=== PATIENT | female | born 1965 | race Caucasian/White ===

== ENCOUNTER 2016-10-31 18:59 | Emergency (ER) | payer OTHER ==
[~2016-10-31] VITALS: Ht 167.6 cm; Wt 108.9 kg
[~2016-10-31 18:59] MED LIST: ALPRAZOLAM0.5 M4 PO; AYGESTIN5 MG PO; EFFEXOR XR75 M1 PO; MOBIC7.5 M1 PO; SYNTHROID100 MCG PO
[2016-10-31 20:13] LABS: ABSOLUTE BASOPHIL COUNT 0 /CUMM (0.0-0.2); ABSOLUTE EOSINOPHIL COUNT 0 /CUMM (0.0-0.7); ABSOLUTE GRANULOCYTE CT 8.3 /CUMM (1.4-6.5); ABSOLUTE LYMPH COUNT 2.6 /CUMM (1.2-3.4); ABSOLUTE MONOCYTE COUNT 0.8 /CUMM (0.10-0.60); BASOPHIL % 0.4 % (0.0-2.0); EOSINOPHIL % 0 % (0-5); GRANULOCYTE % 70.5 % (42.2-75.2); HEMATOCRIT 45.3 % (37-47); MEAN CORPUSCULAR HGB 27.5 PG (27.0-31.0); MEAN CORPUSCULAR HGB CONC 33.2 G/DL (33.0-37.0); MEAN CORPUSCULAR VOLUME 82.8 FL (81.0-99.0); MEAN PLATELET VOLUME 7.2 FL (7.4-10.4); PLATELET COUNT 279 /CUMM (130-400); RBC DISTRIBUTION WIDTH 13.3 % (11.5-14.5); RED BLOOD CELL CT 5.48 /CUMM (4.20-5.40); WHITE BLOOD CELL COUNT 11.7 /CUMM (4.8-10.8)
--- NOTE | 2016-10-31 20:36 | ED CARDIAC/CP/PALPITATIONS ---
History of Present Illness General Chief Complaint: Chest Pain Stated Complaint: CP Source: patient, family Exam Limitations: no limitations Vital Signs & Intake/Output Vital Signs & Intake/Output Vital Signs Date Time Temp Pulse Resp B/P Pulse O2 O2 Flow FiO2 Ox Delivery Rate 11/01 0110 98.4 73 18 168/87 98 Room Air 10/31 2208 98.2 80 18 187/89 99 Room Air 10/318 98 Room Air 10/31 1937 97.9 88 18 161/93 99 Room Air ED Intake and Output 11/01 0000 10/31 1200 Intake Total Output Total Balance Patient 240 lb Weight Allergies Coded Allergies: NO KNOWN ALLERGIES (08/02/16) Reconcile Medications Alprazolam 0.5 MG TABLET 1 TAB PO PRN ANXIETY (Reported) Levothyroxine Sodium (Synthroid) 100 MCG TABLET 1 TAB PO DAILY THYROID ( Reported) Norethindrone (Aygestin) 5 MG TABLET 1 TAB PO AD MENSTRUAL CYCLE (Reported) Venlafaxine HCl (Effexor XR) (Unknown Strength) CAP.ER.24H 75 MG PO DAILY DEPRESSION/ANXIETY (Reported) Triage Note: RECEIVED 51 YO FEMALE C/O MID STERNAL CHEST PAIN, INTERMITTENTLY, STARTED THIS AM, GETTING WORSE. PAIN FEELS LIKE SQUEEZING TIGHTNESS, GETTING WORSE THROUGHOUT THE DAY. SOME LIGHTHEADEDNESS. Triage Nurses Notes Reviewed? yes HPI: Patient states that since this morning she has been getting intermittent substernal chest tightness. There is no radiation. The symptoms last anywhere from a few minutes to a few hours before going when their own. Patient states that she feels better when she gets up and paces and feels little bit worse when she sits down. Patient denies any difficulty breathing. There is no nausea or vomiting. There is no diaphoresis. At its worst the tightness is 7 out of 10. Currently the tightness is 0 out of 10. Past History Travel History Traveled to [place] past 21 day No Medical History Any Pertinent Medical History? see below for history Neurological: NONE EENT: NONE Cardiovascular: NONE Respiratory: NONE Gastrointestinal: NONE Hepatic: NONE Renal: NONE Musculoskeletal: NONE Psychiatric: anxiety Endocrine: hypothyroidism Blood Disorders: NONE Cancer(s): NONE Surgical History Surgical History: non-contributory Psychosocial History What is your primary language Arabic Tobacco Use: Never used ETOH Use: occasional use Illicit Drug Use: denies illicit drug use Family History Hx Contributory? No Review of Systems Review of Systems Constitutional: Reports: no symptoms. EENTM: Reports: no symptoms. Respiratory: Reports: no symptoms. Cardiovascular: Reports: see HPI, chest pain. GI: Reports: no symptoms. Genitourinary: Reports: no symptoms. Musculoskeletal: Reports: no symptoms. Skin: Reports: no symptoms. Neurological/Psychological: Reports: no symptoms. Hematologic/Endocrine: Reports: no symptoms. Immunologic/Allergic: Reports: no symptoms. All Other Systems: Reviewed and Negative Physical Exam Physical Exam General Appearance: well developed/nourished, alert, awake, anxious, mild distress Head: atraumatic, normal appearance Eyes: Bilateral: PERRL, EOMI. Ears, Nose, Throat: normal pharynx, normal ENT inspection Neck: normal inspection, supple, full range of motion Respiratory: normal breath sounds, chest non-tender, no respiratory distress, lungs clear Cardiovascular: regular rate/rhythm, normal peripheral pulses Gastrointestinal: normal bowel sounds, soft, non-tender Back: normal inspection Extremities: normal inspection, normal capillary refill, normal range of motion, no edema Neurologic/Psych: no motor/sensory deficits, awake, alert, oriented x 3, normal gait, normal mood/affect Skin: intact, normal color, warm/dry Lymphatic: no anterior cervical caitlin Core Measures ACS in differential dx? Yes ASA ordered for poss ACS? No-ACS ruled out Severe Sepsis Present: No Septic Shock Present: No Progress Differential Diagnosis: AMI, cholecystitis, costochondritis, musculoskeletal pain, myocarditis, pancreatitis, pericarditis, pneumonia, pneumothorax, pulmonary embolism, PUD/GERD Plan of Care: Orders Procedure Date/time Status TROPONIN LEVEL 10/31 2353 Complete Add-on Test (ER Only) 10/31 2149 Active Add-on Test (ER Only) 10/31 2034 Active Telemetry/Driver Messenger 10/31 2034 Active HUMAN BETA HCG SCREEN 11/01 2003 Complete D-DIMER 11/01 2003 Complete TROPONIN LEVEL 11/01 1939 Complete COMPREHENSIVE METABOLIC PANEL 11/01 1939 Complete CBC WITHOUT DIFFERENTIAL 11/01 1939 Complete EKG 10/31 1901 Active Laboratory Tests 11/01/16 0005: Troponin I < 0.01 10/31/16 2004: Anion Gap 10, Estimated GFR > 60, BUN/Creatinine Ratio 22.9, Glucose 106 H, Calcium 9.5, Total Bilirubin 0.5, AST 16, ALT 25, Alkaline Phosphatase 84, Troponin I < 0.01, Total Protein 6.8, Albumin 4.0, Globulin 2.8, Albumin/ Globulin Ratio 1.4, Total Beta HCG NEGATIVE, D-Dimer 515 H, CBC w Diff NO MAN DIFF REQ, RBC 5.48 H, MCV 82.8, MCH 27.5, RDW 13.3, MPV 7.2 L, Gran % 70.5, Lymphocytes % 22.1, Monocytes % 7.0, Eosinophils % 0, Basophils % 0.4, Absolute Granulocytes 8.3 H, Absolute Lymphocytes 2.6, Absolute Monocytes 0.8 H, Absolute Eosinophils 0, Absolute Basophils 0, PUBS MCHC 33.2 Diagnostic Imaging: Viewed by Me: CT Scan. Discussed w/RAD: CT Scan. Radiology Impression: PATIENT: JONE OROZCO PRESENT AGE: 51 PATIENT ACCOUNT NO: [id number] : 67 LOCATION: [facility] ORDERING PHYSICIAN: MUKESH CRAIG MD SERVICE DATE: 10/31/16 EXAM TYPE: CAT - CTA CHEST-PULMONARY EMBOLISM EXAMINATION: CT ANGIOGRAM OF THE CHEST WITH AND WITHOUT CONTRAST (CT PULMONARY ANGIOGRAM FOR PE) CLINICAL INFORMATION: Chest pain, dyspnea. Positive d-dimer. COMPARISON: None. TECHNIQUE: Prior to contrast administration, noncontrast localization images were obtained. Subsequently, multidetector volumetric imaging was performed from the thoracic inlet to below the diaphragms following the administration of 95 mL Optiray 350 intravenous contrast. No contrast reaction reported. Sagittal, coronal, and MIP oblique sagittal reformatted images were obtained on the CT workstation, uploaded to PACS, and reviewed. Total exam dose-length product 1161 mGy-cm FINDINGS: QUALITY OF STUDY/CONTRAST BOLUS: Adequate contrast opacification of the pulmonary arterial vasculature. PULMONARY ARTERIES: No evidence of pulmonary embolism to the level of the subsegmental pulmonary arteries. THORACIC AORTA: No aneurysm or dissection. LUNG: No focal consolidation, nodules or masses. PLEURA: No pleural effusion or pneumothorax. MEDIASTINUM: Normal heart size. No pericardial effusion. No hilar or mediastinal lymphadenopathy. No evidence of septal bowing or right heart strain. CHEST WALL/AXILLA: No axillary or internal mammary lymphadenopathy. OSSEOUS STRUCTURES: No acute or suspicious osseous abnormality. UPPER ABDOMEN: Evaluation of the upper abdomen is notable for multiple radiopaque gallstones. No reflux of contrast into the hepatic veins to suggest elevated right heart pressures. IMPRESSION: 1. Adequate contrast opacification of the pulmonary arterial vasculature, without evidence of pulmonary embolism to the level of the subsegmental pulmonary arteries. 2. Multiple radiopaque gallstones, without secondary signs of acute cholecystitis. VTE: Negative. DICTATED BY: JEANA JENKINS MD DATE/TIME DICTATED:10/31/162231 POWER CRANE OPERATOR:JOANN DATE/TIME TRANSCRIBED:10/31/162231 CONFIDENTIAL, DO NOT COPY WITHOUT APPROPRIATE AUTHORIZATION. <Electronically signed in Other Vendor System> SIGNED BY: JEANA JENKINS MD 10/31/16 2897 Initial ED EKG: NSR, no ST T wave changes Rhythm Strip: normal sinus rhythm Departure Departure Disposition: HOME OR SELF CARE Condition: Stable Clinical Impression Primary Impression: Chest pain, unspecified Qualifiers: Chest pain type: other chest pain Qualified Code: R07.89 - Other chest pain Referrals: LIBERTAD LO,WALKER Castrejon (PCP/Family) Seble ROBERTS MD Additional Instructions: RETURN IF SYMPTOMS WORSEN OR FOR ANY CONCERNS Departure Forms: Customer Survey General Discharge Information Critical Care Note Critical Care Note Critical Care Time: non-applicable
--- NOTE | 2016-10-31 22:50 | CT SCAN REPORT ---
EXAMINATION: CT ANGIOGRAM OF THE CHEST WITH AND WITHOUT CONTRAST (CT PULMONARY ANGIOGRAM FOR PE) CLINICAL INFORMATION: Chest pain, dyspnea. Positive d-dimer. COMPARISON: None. TECHNIQUE: Prior to contrast administration, noncontrast localization images were obtained. Subsequently, multidetector volumetric imaging was performed from the thoracic inlet to below the diaphragms following the administration of 95 mL Optiray 350 intravenous contrast. No contrast reaction reported. Sagittal, coronal, and MIP oblique sagittal reformatted images were obtained on the CT workstation, uploaded to PACS, and reviewed. Total exam dose-length product 1161 mGy-cm FINDINGS: QUALITY OF STUDY/CONTRAST BOLUS: Adequate contrast opacification of the pulmonary arterial vasculature. PULMONARY ARTERIES: No evidence of pulmonary embolism to the level of the subsegmental pulmonary arteries. THORACIC AORTA: No aneurysm or dissection. LUNG: No focal consolidation, nodules or masses. PLEURA: No pleural effusion or pneumothorax. MEDIASTINUM: Normal heart size. No pericardial effusion. No hilar or mediastinal lymphadenopathy. No evidence of septal bowing or right heart strain. CHEST WALL/AXILLA: No axillary or internal mammary lymphadenopathy. OSSEOUS STRUCTURES: No acute or suspicious osseous abnormality. UPPER ABDOMEN: Evaluation of the upper abdomen is notable for multiple radiopaque gallstones. No reflux of contrast into the hepatic veins to suggest elevated right heart pressures. IMPRESSION: 1. Adequate contrast opacification of the pulmonary arterial vasculature, without evidence of pulmonary embolism to the level of the subsegmental pulmonary arteries. 2. Multiple radiopaque gallstones, without secondary signs of acute cholecystitis. VTE: Negative.
[2016-11-01 01:10] VITALS: BP 168/87
== END 2016-11-01 01:13 ==
LOC: ERH 18:59
PROVIDERS: Emergency Medicine
DX: R07.89 Other chest pain (principal)
CPT/HCPCS: 93005; 93010